=== PATIENT | female | born 1945 | race Two or more races ===

== ENCOUNTER → 2021-07-18 10:32 | Outpatient (CLI) | payer OTHER | END | disposition home or self-care (01) | LOC: NUCLEAR 10:00 | PROVIDERS: ATTEND Obstetrics & Gynecology | DX: E34.8 Other specified endocrine disorders (principal); N95.1 Menopausal and female climacteric states ==

== ENCOUNTER 2022-04-16 11:44 | Emergency (ER) | payer OTHER ==
[~2022-04-16] VITALS: Ht 167.6 cm; Wt 74.4 kg
[2022-04-16] MEDS ORDERED: XARELTO20 MG (12:08)
== END 2022-04-16 14:17 | disposition home or self-care (01) ==
LOC: ER 11:44
DX: I10 Essential (primary) hypertension (principal); E11.9 Type 2 diabetes mellitus without complications; Z95.0 Presence of cardiac pacemaker